=== PATIENT | male | born 1960 | race Caucasian/White ===

== ENCOUNTER 2024-03-21 08:26 | Outpatient (CLI) | payer BC, SELFPAY ==
[2024-03-21 13:10] LABS: Triglycerides 187 mg/dL (<150)
[2024-03-21 14:56] LABS: Hemoglobin A1C 6.9 % (<5.7)
== END 2024-03-21 08:27 | disposition home or self-care (01) ==
LOC: ANHGOSHLAB 08:28
PROVIDERS: PCP Family Medicine; Visit Provider Nurse Practitioner Family
DX: E11.40 Type 2 diabetes mellitus with diabetic neuropathy, unspecified (principal); E78.2 Mixed hyperlipidemia
CPT/HCPCS: 36415; 83036; 84478

== ENCOUNTER 2024-07-24 08:20 | Outpatient (CLI) | payer BC, SELFPAY ==
[2024-07-24 21:28] LABS: Creatinine Urine 48.3 mg/dL
[2024-07-24 21:31] LABS: MALB Creatinine Ratio 18.4 mg/g (0-30); Microalbumin Urine Random 8.9 mg/L (0-16.7)
[2024-07-24 22:28] LABS: Alanine Aminotransferase 33 U/L (6-50); Albumin Level 4.2 g/dL (3.5-5.1); Alkaline Phosphatase 68 U/L (38-126); Anion Gap 9 mmol/L (4-12); Aspartate Amino Transferase 47 U/L (17-59); Bilirubin,Total 0.4 mg/dL (0.2-1.3); Blood Urea Nitrogen 13 mg/dL (9-20); Calcium 9.6 mg/dL (8.4-10.2); Carbon Dioxide 29 mmol/L (22-30); Chloride 100 mmol/L (98-107); Cholesterol 113 mg/dL (0-200); Estimated Glomerular Filt Rate > 60; Glucose 102 mg/dL (65-110); HDL Direct 38 mg/dL; Potassium 4.6 mmol/L (3.4-5.0); Sodium 138 mmol/L (137-145); Triglycerides 273 mg/dL (<150)
[2024-07-24 22:39] LABS: LDL Cholesterol Direct 32 mg/dL
[2024-07-24 23:29] LABS: Hemoglobin A1C 6.8 % (<5.7)
== END 2024-07-24 08:21 | disposition home or self-care (01) ==
LOC: ANHGOSHLAB 08:23
PROVIDERS: PCP Family Medicine; Visit Provider Family Medicine
DX: E11.40 Type 2 diabetes mellitus with diabetic neuropathy, unspecified (principal)
CPT/HCPCS: 36415; 80053; 80061; 82043; 82607; 83036

== ENCOUNTER 2024-11-09 00:18 | Day surgery (SDC) | payer BC, SELFPAY ==
[2024-10-30 12:21] VITALS: BMI 27.3
--- OUTSIDE RECORDS SUMMARY | 2024-11-09 00:21 | XMS_ITS | Patient Health Summary ---
Author Organization [facility] Address [address] [place] [address] Care Team Providers Care Gasoline Engine Inspector Name Role Phone Unavailable Primary Care Provider Unavailabl e Note from [facility],non-owned Affiliates and Associated Physician Practices is amultiple site organization consisting of ambulatory clinics and hospital sitesin [place], [place], [place] and [place]. This disclosure is being madepursuant to the Care Everywhere program and may not contain all information available regarding this patient. Last updated 18.[facility] Allergies * Exenatide(Anaphylaxis) -High Criticality * Penicillins(Rash) -Medium Criticality Immunizations * Covid Pfizer primary monovalent 12+ yr 0.3mL Purple cap(Given 06/25/2021) * INFLUENZA VACCINE, QUADR. (FLUZONE; FLULAVAL; FLUARIX; AFLURIA QUADRIVALENT; 6MO+), 0.5 ML (IIV4)(Given 06/03/2021) Social History Tobacco Use Types Packs/Day Years Used Date Smoking Tobacco: Never Assessed Sex and Gender Information Value Date Recorded Sex Assigned at Not on file Gender Identity Not on file Sexual Orientation Not on file Procedures * SKIN TEST PPD - POINT OF CARE(Performed 06/05/2021) Performed for PPD screening test * SKIN TEST PPD - POINT OF CARE(Performed 12/26/2020) Performed for PPD screening test * SKIN TEST PPD - POINT OF CARE(Performed 12/27/2019) Performed for Screening for tuberculosis * SKIN TEST PPD - POINT OF CARE(Performed 09/07/2018) Performed for PPD screening test Results * SKIN TEST PPD - POINT OF CARE (06/05/2021 10:09 AM CDT) Only the most recent of4 resultswithin the time period is included. PPD 0mm [facility] [place] Other MISCELLANEOUS SAMPLE S / Unknown 06/05/2021 10:09 AM CDT Marcos Garcia [facility] - POINT OF CARE ORDERABLES [facility] [place] [address] [phone]
--- OUTSIDE RECORDS SUMMARY | 2024-11-09 00:21 | XMS_ITS | Clinical Summary ---
Author Organization [facility] Address [address] [place]: Epic Prelude ADT RADHA HUYNH [address] Care Team Providers Care Stained Glass Artist Name Role Phone Unavailable Primary Care Provider Unavailabl e Social History Tobacco Use Types Packs/Day Years Used Date Smoking Tobacco: Never Assessed Sex and Gender Information Value Date Recorded Sex Assigned at Not on file Legal Sex Male 3:48 PM CLAIMS SPECIALIST Gender Identity Not on file Sexual Orientation Not on file Plan of Treatment Health Maintenance Due Date Last Done Comments DTAP/TDAP/TD VACCINES (1 - Tdap) 1980 COLORECTAL SCREENING 2006 Colorectal Cancer Screening 2006 FIT-DNA Q 3 years 2006 FIT/FOBT Q 1 year 2006 Flex Sig/CT Colonography Q 5 years 2006 ZOSTER VACCINE (1 of 2) 2011 INFLUENZA VACCINE (#1) 2024 RSV VACCINE (60+ or ) (1 - 1-dose 75+ series) 2036 PNEUMOCOCCAL VACCINE 0-49 YEARS Aged Out No longer eligible based on patient's age to complete this topic
--- OUTSIDE RECORDS SUMMARY | 2024-11-09 00:21 | XMS_ITS | Referral Summary ---
Author Organization [facility] Address [address] [place] [address] Care Team Providers Care Hospitality Job Titles Name Role Phone Unavailable Primary Care Provider Unavailabl e Source Comments [facility],non-owned Affiliates and Associated Physician Practices is amultiple site organization consisting of ambulatory clinics and hospital sitesin [place], [place], [place] and [place]. This disclosure is being madepursuant to the Care Everywhere program and may not contain all information available regarding this patient. Last updated 18.[facility] [employer] Allergies Active Allergy Reactions Criticality Noted Date Comments Exenatide Anaphylaxis High 12/26/2020 Penicillins Rash Medium 09/07/2018 Immunizations Name Administration Dates Next Due Covid Pfizer primary monovalent 12+ yr 0.3mL Pur ple cap 06/25/2021 INFLUENZA VACCINE, QUADR. (F LUZONE; FLULAVAL; FLUARIX; AFLURIA QUADRIVALENT; 6MO+), 0.5 ML (IIV4) 06/03/2021 Social History Tobacco Use Types Packs/Day Years Used Date Smoking Tobacco: Never Assessed Sex and Gender Information Value Date Recorded Sex Assigned at Not on file Gender Identity Not on file Sexual Orientation Not on file Plan of Treatment Not on file Administered Medications
--- OUTSIDE RECORDS SUMMARY | 2024-11-09 00:21 | XMS_ITS | Clinical Summary ---
Author Organization [facility] Address [address] [place] [address] Care Team Providers Care Repair Specialist Name Role Phone Unavailable Primary Care Provider Unavailabl e Source Comments [facility],non-owned Affiliates and Associated Physician Practices is amultiple site organization consisting of ambulatory clinics and hospital sitesin [place], [place], [place] and [place]. This disclosure is being madepursuant to the Care Everywhere program and may not contain all information available regarding this patient. Last updated 18.[facility] [employer] Document Management software Allergies Active Allergy Reactions Criticality Noted Date [...] Health Maintenance Due Date Last Done Comments COLOGUARD (AGES 45-75) - COLON CA SCREENING 1961 COLON MONITORING 1961 COLONOSCOPY - COLON CA SCREENING 1961 CT COLONOGRAPHY - COLON CA SCREENING 1961 Colorectal Cancer Screening 1961 FIT - COLON CA SCREENING 1961 FLEX SIG - COLON CA SCREENING 1961 LIPID TESTING 1961 HIV SCREENING 1976 HEPATITIS C SCREENING 03/06/1979 DTAP/TDAP/TD VACCINES (1 - Tdap) 1980 PNEUMOCOCCAL VACCINE 50+ (1 of 1 - PCV) 2011 ZOSTER VACCINE (1 of 2) 2011 COVID-19 VACCINE (4 - season) 2024 06/25/2021, 09/10/2020, 08/23/2020 INFLUENZA VACCINE (#1) 2024 , 05/11/2020, 05/11/2019, Additional history exists DEPRESSION SCREENING 09/06/2024 Respiratory Syncytial Virus (RSV) Vaccine Pt: or over 60 yrs (1 - 1-dose 75+ series) 2036 HEPATITIS B VACCINE Aged Out No longe r eligible based on patient's age to complete this topic HIB VACCINE Aged Out No longer eligi ble based on patient's age to complete this topic HPV VACCINE Aged Out No longer eligi ble based on patient's age to complete this topic MENINGOCOCCAL (Group B) VACCINE Aged Out No longer eligible based on patient's age to complete this topic MENINGOCOCCAL VACCINE Aged Out No raj omar eligible based on patient's age to complete this topic PNEUMOCOCCAL VACCINE Aged Out No long er eligible based on patient's age to complete this topic
--- OUTSIDE RECORDS SUMMARY | 2024-11-09 00:21 | XMS_ITS | Referral Summary ---
Author Organization [facility] Address [address] [place] [address] Care Team Providers Care Pipe Crew Foreman Name Role Phone Shanon Marcial MD Primary Care Provider + Travis Jacobsen MD Unavailable Francesca Gil MD Unavailable Meli Martinez NP Unavailable [phone] Allergies Active Allergy Reactions Criticality Noted Date Comments Exenatide Microspheres Anaphylaxis High 09/21/2022 Exenatide Swelling,Anaphylaxis High 08/04/2019 Penicillins Itching,Rash Medium 09/07/2018 Medications rosuvastatin (CRESTOR) 10 mg tablet Take 1 tablet (10 mg total) by mouth daily Active trandolapril (MAVIK) 2 mg tablet Take 1 tablet (2 mg total) by mouth daily Active aspirin 81 mg enteric coated tablet Take 1 tablet (81 mg total) by mouth daily Active ezetimibe (ZETIA) 10 mg tablet Take 1 tablet (10 mg total) by mouth daily 2 Active Ozempic 0.25 mg or 0.5 mg(2 mg/1.5 mL) pen injector injection INJECT 0.25MG UNDER THE SKIN WEEKLY 2 Active Synjardy XR 12.5-1,000 mg tablet, IR & ER, biphasic 24hr Take 2 tablets by mouth every morning 2 Active FreeStyle Baldomero 2 Sensor kit CHANGE SENSOR EVERY 14 DAYS 4 Active Ozempic 1 mg/dose (4 mg/3 mL) pen injector injection ADMINISTER 1 MG UNDER THE SKIN WEEKLY 4 Active Active Problems Problem Noted Date Diagnosed Date Radiotherapy follow-up examination 04/14/2023 Tinnitus 10/07/2022 Sensorineural hearing loss, asymmetrical 023 Bilateral impacted cerumen 10/07/2022 Meningioma 09/12/2019 Resolved Problems Problem Noted Date Diagnosed Date Resolved Date Brain lesion 08/11/2019 05/04/2023 Overview (08/11/2019): Added automatically from request for surgery [id number] Immunizations Immunization Administration Dates Next Due Influenza, Quadrivalent, Iliana l Culture-based MDCK, Preservative Free, Antibiotic Free, Intramuscular 05/11/2020 Influenza, Quadrivalent, Rec ombinant, Egg Free, Preservative Free, Intramuscular 05/11/2019 Influenza, Quadrivalent, Spl it, Preservative Free, Intramuscular 06/03/2021,05/23/2018 Social History Tobacco Use Types Packs/Day Years Used Date Smoking Tobacco: Never Smokeless Tobacco: Never Tobacco Cessation:Counseling Given: Not Answered Alcohol Use Standard Drinks/Week Comments Yes 2 (1 standard drink = 0.6 oz pur e alcohol) AUDIT-C Answer Date Recorded Frequency of Alcohol Consumption 2-3 times a wee k 08/04/2019 Average Number of Drinks 1 or 2 019 Frequency of Binge Drinking Never 07/08 PHQ-2 Answer Date Recorded PHQ-2 Score 0 08/04/2019 Sex and Gender Information Value Date Recorded Sex Assigned at Not on file Legal Sex Male 3:43 PM COMPRESSION MOLDING MACHINE SETTER Gender Identity Male 07/23/2020 9:01 AM COMPRESSION MOLDING MACHINE SETTER Sexual Orientation Straight 07/23/2020 9: 01 AM COMPRESSION MOLDING MACHINE SETTER Last Filed Vital Signs Vital Sign Reading Time Taken Comments Blood Pressure 115/69 04/24/2024 2:28 PM CDT Pulse 76 04/24/2024 2:28 PM CDT Temperature 36.9 C (98.5 F) 09/21/2022 9:27 AM COMPRESSION MOLDING MACHINE SETTER Respiratory Rate 11 11/03/2022 8:55 AM COMPRESSION MOLDING MACHINE SETTER Oxygen Saturation 96% 11/03/2022 1:20 PM COMPRESSION MOLDING MACHINE SETTER Inhaled Oxygen Concentration - - Weight 109.3 kg (241 lb) 04/24/2024 2:28 PM CDT Height 195.6 cm (6' 5 ) 04/24/2024 2:28 PM CDT Body Mass Index 28.58 04/24/2024 2:28 PM CDT Plan of Treatment Not on file Medical Devices Implanted Type Area Editor House Organ Device Identifier Shelf Expiration Date Model / Serial / Lot Integra Lifesciences Godfrey [id number] Integra Resorbable Dural Graft Soft Tissue Bovine Pericardium - S. - [id number] Implanted:Qty: 1 on 08/15/2019 by Abhay Cueva MD at [facility] Left: Brain Integra Lifesciences Godfrey 11/03/2021 [id number] / . / Synthes 421.528 24mm .5mm 6 Hole Low Profile Craniofacial Cover D Hanis Hole - [id number] Implanted:Qty: 2 on 08/15/2019 by Abhay Cueva MD at [facility] Left: Brain Synthes I 421.528 / / Synthes 421.527 17mm .5mm Low Profile Craniomaxillofacial Cover Julianna Hole - [id number] Implanted:Qty: 2 on 08/15/2019 by Abhay Cueva MD at [facility] Left: Brain Synthes I 421.527 / / Synthes 400.834 1.6mm 2.9mm 4mm Self Drill Self Retain Low Profile Cruciform - [id number] Implanted:Qty: 16 on 08/15/2019 by Abhay Cueva MD at [facility] Left: Brain Synthes I 400.834 / / Insurance [facility] CHOICE PLUS ANTHEM ACCESS BLUE ACCESS OOS ANTHEM ACCESS ANTHEM ACCESS Advance Directives For more information, please contact: [phone] * Full Code (Latest Code Status on File) Date Activated Date Inactivated Comments 08/15/2019 1:15 PM 08/17/2019 2:54 PM * Full Code Date Activated Date Inactivated Comments 08/14/2019 11:47 AM 08/15/2019 1:15 PM * Full Code Date Activated Date Inactivated Comments 08/04/2019 10:56 AM 08/06/2019 8:42 PM Care Teams Pipe Crew Foreman Relationship Specialty Start Date End Date Shanon Marcial MD PCP - General Family Medicine 08/14/19 Travis Jacobsen MD Surgeon Neurosurgery 11/03/22 Francesca Gil MD Radiation Oncologist Radiation Oncology 04/14/23 Meli Martinez NP Nurse Practitioner Radiation Oncology 10/18/23
--- OUTSIDE RECORDS SUMMARY | 2024-11-09 00:21 | XMS_ITS | Clinical Summary ---
Author Organization [facility] Address [address] [place] [address] Care Team Providers Care Curb Setter Name Role Phone Shanon Marcial MD Primary Care Provider + Travis Jacobsen MD Unavailable Francesca Gil MD Unavailable Meli Martinez NP Unavailable [phone] Allergies Active Allergy Reactions Criticality Noted [...] (08/11/2019): Added automatically from request for surgery [id number] Immunizations Immunization Administration Dates Next Due Influenza, Quadrivalent, Iliana l Culture-based MDCK, Preservative Free, Antibiotic Free, Intramuscular 05/11/2020 Influenza, Quadrivalent, Rec ombinant, Egg Free, Preservative Free, Intramuscular 05/11/2019 Influenza, Quadrivalent, Spl it, Preservative Free, Intramuscular 06/03/2021,05/23/2018 Surgical History Surgery Date Site/Laterality Comments LIVER BIOPSY PROSTATE BIOPSY Medical History Medical History Date Comments Sleep apnea DM2 (diabetes mellitus, type 2) (HCC) HTN (hypertension) HLD (hyperlipidemia) Brain lesion Family History Medical History Relation Name Comments Aneurysm Father Blood Clot Mother Relation Name Status Comments Father Mother Social History Tobacco Use Types Packs/Day Years [...] on file Legal Sex Male 3:43 PM BONE GRINDER Gender Identity Male 07/23/2020 9:01 AM BONE GRINDER Sexual Orientation Straight 07/23/2020 9: 01 AM BONE GRINDER Obstetrics History Last Filed Vital Signs Vital Sign Reading Time Taken Comments Blood Pressure 115/69 04/24/2024 2:28 PM CDT Pulse 76 04/24/2024 2:28 PM CDT Temperature 36.9 C (98.5 F) 09/21/2022 9:27 AM BONE GRINDER Respiratory Rate 11 11/03/2022 8:55 AM BONE GRINDER Oxygen Saturation 96% 11/03/2022 1:20 PM BONE GRINDER Inhaled Oxygen Concentration - - Weight 109.3 kg (241 lb) 04/24/2024 2:28 PM CDT Height 195.6 cm (6' 5 ) 04/24/2024 2:28 PM CDT Body Mass Index 28.58 04/24/2024 2:28 PM CDT Plan of Treatment Health Maintenance Due Date Last Done Comments Colon Cancer Screening-Colonoscopy 1961 Hepatitis C Screening 1961 Prostate Cancer Screening-PSA 1961 DTaP/Tdap/Td Vaccine (1 - Tdap) 1972 Hepatitis B Screening 1979 Regular Well Visit/Exam 18-64 1979 Zoster Vaccine (1 of 2) 2011 Depression Screening 08/04/2020 08/04/2019 Covid-19 Vaccine ( season) 2024 06/25/2021, 09/10/2020, 08/23/2020 Influenza Vaccine (#1) 2024 , 05/11/2020, 05/11/2019, Additional history exists Pneumococcal vaccine <65 Aged Out No longer eligible based on patient's age to complete this topic Medical Devices Implanted Type Area Patternmaker Sample Device Identifier Shelf Expiration Date Model / Serial / Lot Integra Lifesciences Godfrey [id number] Integra Resorbable Dural Graft Soft Tissue Bovine Pericardium - S. - [id number] Implanted:Qty: 1 on 08/15/2019 by Abhay Cueva MD at [facility] Left: Brain Integra Lifesciences Godfrey 11/03/2021 [id number] / . / Synthes 421.528 24mm .5mm 6 Hole Low Profile Craniofacial Cover Julianna Hole - [id number] Implanted:Qty: 2 on 08/15/2019 by Abhay Cueva MD at [facility] Left: Brain Synthes I 421.528 / / Synthes 421.527 17mm .5mm Low Profile Craniomaxillofacial Cover Julianna Hole - [id number] Implanted:Qty: 2 on 08/15/2019 by Abhay Cueva MD at [facility] Left: Brain Synthes I 421.527 / / Synthes 400.834 1.6mm 2.9mm 4mm Self Drill Self Retain Low Profile Cruciform - [id number] Implanted:Qty: 16 on 08/15/2019 by Abhay Cueva MD at [facility] Left: Brain Synthes I 400.834 / / Insurance [facility] CHOICE PLUS [employer] OOS ANTHEM ACCESS ANTHEM ACCESS Advance Directives For more information, please contact: [phone] * Full Code (Latest Code Status on File) Date Activated Date Inactivated Comments 08/15/2019 1:15 PM 08/17/2019 2:54 PM * Full Code Date Activated Date Inactivated Comments 08/14/2019 11:47 AM 08/15/2019 1:15 PM * Full Code Date Activated Date Inactivated Comments 08/04/2019 10:56 AM 08/06/2019 8:42 PM Care Teams Curb Setter Relationship Specialty Start Date End Date Shanon Marcial MD PCP - General Family Medicine 08/14/19 Travis Jacobsen MD Surgeon Neurosurgery 11/03/22 Francesca Gil MD Radiation Oncologist Radiation Oncology 04/14/23 Meli Martinez NP Nurse Practitioner Radiation Oncology 10/18/23
--- NOTE | 2024-11-09 11:50 | SUR.PREOP ---
blood glucose per dexcom 140
[2024-11-09 11:51] VITALS: BP 115/79; PULSE 64; RESP 16; TEMP 35.9; O2SAT 98; BMI 28.0
[2024-11-09] MEDS: LACTATED RINGERS 1,000 ML 150 ML IV CONT (12:00)
--- NOTE | 2024-11-09 12:10 | WPDANESEPPF ---
Anes - Initial Pre Proc Eval Procedure: Operation Date: 11/09/24 13:00 Proposed Procedures p Screening Colonoscopy - Marcelo Mas MD Date/Time: 11/09/24 12:10 Surgeon: Marcelo Mas MD Pre Op Diagnosis: Screening for malignant neoplasm of colon Patient Data Age: 64 Gender: M Height: 1.96 m Weight: 107.3 kg Last Vital Signs Temp 35.9 C L 11/09/24 11:51 Pulse 64 11/09/24 11:51 Resp 16 11/09/24 11:51 BP 115/79 11/09/24 11:51 Pulse Ox 98 11/09/24 11:51 O2 Del Method Room Air 11/09/24 11:51 Allergies Allergy/AdvReac Type Severity Reaction Status Date / Time exenatide Allergy Unknown Tongue Verified 11/09/24 11:48 swelling Penicillins Allergy Unknown Skin Verified 11/09/24 11:48 Reaction Home Medications ?Medication ?Instructions ?Recorded ?Confirmed ?Type blood sugar diagnostic #10 ea 12/28/19 07/25/24 History lancets (Accu-Chek Softclix #50 ea 12/28/19 07/25/24 History Lancets) flash glucose scanning reader #1 ea 12/26/20 07/25/24 Rx (FreeStyle Baldomero 2 Orondo) aspirin 81 mg tablet,delayed 81 mg PO DAILY 05/01/21 11/09/24 History release (Adult Low Dose Aspirin) mecobalamin (vitamin B12) 1,000 1,000 mcg PO DAILY 11/24/23 11/09/24 History mcg chewable tablet semaglutide 1 mg/dose (4 mg/3 mL) See Rx Instructions .Route 05/24/24 11/09/24 Rx subcutaneous pen injector (Ozempic) .COMPLEX #9 mL flash glucose sensor (FreeStyle #6 ea 05/29/24 07/25/24 Rx Baldomero 2 Sensor kit) rosuvastatin 10 mg tablet See Rx Instructions .Route 06/08/24 11/09/24 Rx .COMPLEX #90 tabs blood-glucose sensor (FreeStyle #6 ea 07/25/24 07/25/24 Rx Baldomero 3 Plus Sensor device) trandolapril 2 mg tablet See Rx Instructions .Route 09/08/24 11/09/24 Rx .COMPLEX #90 tabs ezetimibe 10 mg tablet See Rx Instructions .Route 09/12/24 11/09/24 Rx .COMPLEX #90 tabs empagliflozin 12.5 mg-metformin ER See Rx Instructions .Route 10/02/24 11/09/24 Rx 1,000 mg tablet,extended rel 24 hr .COMPLEX #180 tabs (Synjardy XR) Patient hx anesthesia problems: none Family hx anesthesia problems: none Results Review: All pre-operative results and documents have been reviewed as part of the pre-operative evaluation. [facility] Past Medical History Medical History (Updated 11/09/24 @ 12:11 by Kem Zapien DO) Mixed hyperlipidemia Obstructive sleep apnea on CPAP Type 2 diabetes mellitus with diabetic neuropathy, unspecified Essential hypertension Normal colonoscopy 08.21.13/ repeat in 10 years Meningioma 08-04-19/ cystic meningioma Surgical History Surgical History H/O craniotomy 08/15/19 left frontal craniotomy for cystic meningioma Family History Family History Mother Family history of coronary artery disease Diabetes mellitus Hypertension Family history of rheumatoid arthritis Family history of sleep apnea Father Family history of aortic aneurysm Sibling Cerebral aneurysm Other Cerebral aneurysm Social History Social History Smoking status: Never smoker Alcohol intake: current Drinks per week: 5 Substance use: never Substance use type: does not use Do You Feel Safe in your Home?: Yes Lack of Transportation: No Lack of Food: Never True Current Housing: I Have Housing Concerned About Future Housing: No Difficulty Paying Gas/Electric Bills: No Difficulty Paying for Meds: No Currently Unemployed: No Education: Bachelor's Degree Difficulty w/ Childcare or Family Care: No Living arrangements: with family Spiritual care concerns: No Anes - Eval Final PreProcedure Day of Procedure 11/09/24 12:10 Patient weight: overweight Heart: regular rate and rhythm Lungs: clear to auscultation Airway: Mallampati scale class II Neurological: alert and oriented Last oral intake: >/= 8 hours ASA classification: III Emergent: no Anesthetic plan: proceed Anesthesia type and monitoring: general GIVS and standard monitoring Results Review: All pre-operative results and documents have been reviewed as part of the pre-operative evaluation. Informed Consent: The patient's anesthetic plan and its attendant risks and benefits were discussed with the patient/family/POA. Questions were solicited and answers provided to the satisfaction of the patient/family/POA.
--- NOTE | 2024-11-09 13:24 | P.HP_ITS ---
H&P: HPI History of Present Illness Date/Time: 11/09/24 13:24 Chief Complaint: Screening colonoscopy Narrative: This is the patient's 2nd colonoscopy after 10 years. There are no GI symptoms and there is no family history of colorectal cancer. Review of Systems Review of Systems: All systems reviewed & are unremarkable except as noted in HPI and below PMFSH Past Medical History Medical History (Updated 11/09/24 @ 13:25 by Marcelo Mas MD) Mixed hyperlipidemia Obstructive sleep apnea on CPAP Type 2 diabetes mellitus with diabetic neuropathy, unspecified Essential hypertension Normal colonoscopy 08.21.13/ repeat in 10 years Meningioma 08-04-19/ cystic meningioma Surgical History Surgical History H/O craniotomy 08/15/19 left frontal craniotomy for cystic meningioma Family History Family History Mother Family history of coronary artery disease Diabetes mellitus Hypertension Family history of rheumatoid arthritis Family history of sleep apnea Father Family history of aortic aneurysm Sibling Cerebral aneurysm Other Cerebral aneurysm Social History Social History Smoking status: Never smoker Alcohol intake: current Drinks per week: 5 Substance use: never Substance use type: does not use Do You Feel Safe in your Home?: Yes Lack of Transportation: No Lack of Food: Never True Current Housing: I Have Housing Concerned About Future Housing: No Difficulty Paying Gas/Electric Bills: No Difficulty Paying for Meds: No Currently Unemployed: No Education: Bachelor's Degree Difficulty w/ Childcare or Family Care: No Living arrangements: with family Spiritual care concerns: No Meds Home Medications and Allergies Home Medications ?Medication ?Instructions ?Recorded ?Confirmed ?Type blood sugar diagnostic #10 ea 12/28/19 07/25/24 History lancets (Accu-Chek Softclix #50 ea 12/28/19 07/25/24 History Lancets) flash glucose scanning reader #1 ea 12/26/20 07/25/24 Rx (FreeStyle Baldomero 2 [place]) aspirin 81 mg tablet,delayed 81 mg PO DAILY 05/01/21 11/09/24 History release (Adult Low Dose Aspirin) mecobalamin (vitamin B12) 1,000 1,000 mcg PO DAILY 11/24/23 11/09/24 History mcg chewable tablet semaglutide 1 mg/dose (4 mg/3 mL) See Rx Instructions .Route 05/24/24 11/09/24 Rx subcutaneous pen injector (Ozempic) .COMPLEX #9 mL flash glucose sensor (FreeStyle #6 ea 05/29/24 07/25/24 Rx Baldomero 2 Sensor kit) rosuvastatin 10 mg tablet See Rx Instructions .Route 06/08/24 11/09/24 Rx .COMPLEX #90 tabs blood-glucose sensor (FreeStyle #6 ea 07/25/24 07/25/24 Rx Baldomero 3 Plus Sensor device) trandolapril 2 mg tablet See Rx Instructions .Route 09/08/24 11/09/24 Rx .COMPLEX #90 tabs ezetimibe 10 mg tablet See Rx Instructions .Route 09/12/24 11/09/24 Rx .COMPLEX #90 tabs empagliflozin 12.5 mg-metformin ER See Rx Instructions .Route 10/02/24 11/09/24 Rx 1,000 mg tablet,extended rel 24 hr .COMPLEX #180 tabs (Synjardy XR) Allergies Allergy/AdvReac Type Severity Reaction Status Date / Time exenatide Allergy Unknown Tongue Verified 11/09/24 11:48 swelling Penicillins Allergy Unknown Skin Verified 11/09/24 11:48 Reaction Vital Signs Vital Signs - 24 hr 11/09/24 11:51 Temperature 96.6 F L Pulse Rate 64 Respiratory Rate 16 Blood Pressure 115/79 Pulse Oximetry 98 Oxygen Delivery Room Air Exam Const: General: cooperative and healthy appearing Resp: Effort & Inspection: normal respiratory effort and able to speak in complete sentences Auscultation: clear to auscultation bilaterally Cardio: Rate: regular rate Rhythm: regular rhythm GI: Inspection: normal to inspection GI Palp: No No hepatosplenomegaly present Auscultation: normal bowel sounds Rectal Exam: deferred Skin: General skin exam: normal color Psych: Appearance: grossly normal Mental Status: mental status grossly normal Assessment and Plan Assessment and plan (1) Encounter for screening colonoscopy: Code(s): Z12.11 - Encounter for screening for malignant neoplasm of colon Status: Acute Assessment and Plan: The patient is deemed a good candidate for the procedure. Consent signed. Will proceed.
[2024-11-09 13:57] VITALS: BP 102/68; PULSE 67; RESP 24; O2SAT 98
[2024-11-09 14:07] VITALS: BP 114/78; PULSE 60; RESP 20; O2SAT 100
[2024-11-09 14:17] VITALS: BP 122/86; PULSE 58; RESP 17; O2SAT 100
== END 2024-11-09 14:27 | disposition home or self-care (01) ==
PROVIDERS: PCP Family Medicine; Referring Provider Family Medicine; Visit Provider Internal Medicine Gastroenterology
PROC: 0DJD8ZZ Inspection of Lower Intestinal Tract, Via Natural or Artificial Opening Endoscopic (ICD-10-PCS; CPT 45378; principal; 2024-11-09 13:00)
DX: Z12.11 Encounter for screening for malignant neoplasm of colon (principal)
CPT/HCPCS: 45378; J2003; J2704; J7120

== ENCOUNTER 2024-12-20 16:04 | Emergency (ER) | payer OTHER, BC, SELFPAY ==
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
[2024-12-20 16:36] VITALS: BP 151/84; PULSE 70; RESP 14; TEMP 36.4; O2SAT 98
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
--- OUTSIDE RECORDS SUMMARY | 2024-12-20 16:52 | XMS_ITS | Clinical Summary ---
Author Organization [facility] Address [address] [place] [address] Care Team Providers Care Utility Manager Name Role Phone Shanon Marcial MD Primary Care Provider + Travis Jacobsen MD Unavailable Francesca Gil MD Unavailable Meli Martinez NP Unavailable [phone] Allergies Active Allergy Reactions Criticality Noted [...] (08/11/2019): Added automatically from request for surgery [id number] Immunizations Immunization Administration Dates Next Due Influenza, [...] on file Legal Sex Male 3:43 PM HOSPICE AIDE Gender Identity Male 07/23/2020 9:01 AM HOSPICE AIDE Sexual Orientation Straight 07/23/2020 9: 01 AM HOSPICE AIDE Obstetrics History Last Filed Vital Signs Vital Sign Reading Time Taken Comments Blood Pressure 115/69 04/24/2024 2:28 PM CDT Pulse 76 04/24/2024 2:28 PM CDT Temperature 36.9 C (98.5 F) 09/21/2022 9:27 AM HOSPICE AIDE Respiratory Rate 11 11/03/2022 8:55 AM HOSPICE AIDE Oxygen Saturation 96% 11/03/2022 1:20 PM HOSPICE AIDE Inhaled Oxygen Concentration - - Weight 109.3 [...] season) 2024 06/25/2021, 09/10/2020, 08/23/2020 Influenza Vaccine (Season Ended) 2025 06/03/2021, 05/11/2020, 05/11/2019, Additional history exists Pneumococcal vaccine <65 Aged Out No longer eligible based on patient's age to complete this topic Medical Devices Implanted Type Area Loss Prevention Guard Device Identifier Shelf Expiration Date Model / Serial / Lot Integra [employer] [id number] Integra Resorbable Dural Graft Soft Tissue Bovine Pericardium - S. - [id number] Implanted:Qty: 1 on 08/15/2019 by Abhay Cueva MD at [facility] Left: Brain Integra [employer]frey 11/03/2021 [id number] / . / Synthes 421.528 24mm .5mm 6 Hole Low Profile Craniofacial Cover [place] - [id number] Implanted:Qty: 2 on 08/15/2019 by Abhay Cueva MD at [facility] Left: Brain Synthes I 421.528 / / Synthes 421.527 17mm .5mm Low Profile Craniomaxillofacial Cover Julianna Hole - [id number] Implanted:Qty: 2 on 08/15/2019 by Abhay Cueva MD at [facility] Left: Brain Synthes I 421.527 / / Synthes 400.834 1.6mm 2.9mm 4mm Self Drill Self Retain Low Profile Cruciform - [id number] Implanted:Qty: 16 on 08/15/2019 by Abhay Cueva MD at [facility] Left: Brain Synthes I 400.834 / / Insurance [facility] CHOICE PLUS [id number] Address: [address] [place] [address] [employer] Address: [facility] [address] [place] [address] [employer] Address: [place] [address] [employer] Address: [address] [place] [address] Advance Directives For more information, please contact: [phone] * Full Code (Latest Code Status on File) Date Activated Date Inactivated Comments 08/15/2019 1:15 PM 08/17/2019 2:54 PM * Full Code Date Activated Date Inactivated Comments 08/14/2019 11:47 AM 08/15/2019 1:15 PM * Full Code Date Activated Date Inactivated Comments 08/04/2019 10:56 AM 08/06/2019 8:42 PM Care Teams Utility Manager Relationship Specialty Start Date End Date Shanon Marcial MD PCP - General Family Medicine 08/14/19 Travis Jacobsen MD Surgeon Neurosurgery 11/03/22 Francesca Gil MD Radiation Oncologist Radiation Oncology 04/14/23 Meli Martinez NP Nurse Practitioner Radiation Oncology 10/18/23
--- OUTSIDE RECORDS SUMMARY | 2024-12-20 16:52 | XMS_ITS | Referral Summary ---
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 Gender Identity Male 07/23/2020 9:01 AM MACHINE FITTER Sexual Orientation Straight 07/23/2020 9: 01 AM MACHINE FITTER Last Filed Vital Signs Vital Sign Reading Time Taken Comments Blood Pressure 115/69 04/24/2024 2:28 PM CDT Pulse 76 04/24/2024 2:28 PM CDT Temperature 36.9 C (98.5 F) 09/21/2022 9:27 AM MACHINE FITTER Respiratory Rate 11 11/03/2022 8:55 AM MACHINE FITTER Oxygen Saturation 96% 11/03/2022 1:20 PM MACHINE FITTER Inhaled Oxygen Concentration - - Weight 109.3 kg (241 lb) 04/24/2024 2:28 PM CDT Height 195.6 cm (6' 5 ) 04/24/2024 2:28 PM CDT Body Mass Index 28.58 04/24/2024 2:28 PM CDT Plan of Treatment Not on file Medical Devices Implanted Type Area Scratch Finisher Device Identifier Shelf Expiration Date Model / Serial / Lot Integra Lifesciences Godfrey [id number] Integra Resorbable Dural Graft Soft Tissue Bovine Pericardium - S. - [id number] Implanted:Qty: 1 on 08/15/2019 by Abhay Cueva MD at [facility] Left: Brain Integra Lifesciences Godfrey 11/03/2021 [id number] / . / Synthes 421.528 24mm .5mm 6 Hole Low Profile Craniofacial Cover [place] Hole - [id number] Implanted:Qty: 2 on 08/15/2019 by Abhay Cueva MD at [facility] Left: Brain Synthes I 421.528 / / Synthes 421.527 17mm .5mm Low Profile Craniomaxillofacial Cover [place] Hole - [id number] Implanted:Qty: 2 on 08/15/2019 by Abhay Cueva MD at [facility] Left: Brain Synthes I 421.527 / / Synthes 400.834 1.6mm 2.9mm 4mm Self Drill Self Retain Low Profile Cruciform - [id number] Implanted:Qty: 16 on 08/15/2019 by Abhay Cueva MD at [facility] Left: Brain Synthes I 400.834 / / Insurance [facility] CHOICE PLUS ANTHEM ACCESS BLUE ACCESS OOS ANTHEM ACCESS ANTHEM ACCESS Advance Directives For more information, please contact: [phone] * Full Code (Latest Code Status on File) Date Activated Date Inactivated Comments 08/15/2019 1:15 PM 08/17/2019 2:54 PM * Full Code Date Activated Date Inactivated Comments 08/14/2019 11:47 AM 08/15/2019 1:15 PM * Full Code Date Activated Date Inactivated Comments 08/04/2019 10:56 AM 08/06/2019 8:42 PM Care Teams Marble Setter Relationship Specialty Start Date End Date Shanon Marcial MD PCP - General Family Medicine 08/14/19 Travis Jacobsen MD Surgeon Neurosurgery 11/03/22 Francesca Gil MD Radiation Oncologist Radiation Oncology 04/14/23 Meli Martinez NP Nurse Practitioner Radiation Oncology 10/18/23
--- OUTSIDE RECORDS SUMMARY | 2024-12-20 16:52 | XMS_ITS | Clinical Summary ---
Author Organization [facility] Address [address] Reichn: Epic Prelude ADT RADHA HUYNH [address] Care Team Providers Care Key Account Coordinator Name Role Phone Unavailable Primary Care Provider Unavailabl e Social History Tobacco Use Types Packs/Day Years Used Date Smoking Tobacco: Never Assessed Sex and Gender Information Value Date Recorded Sex Assigned at Not on file Legal Sex Male 3:48 PM SEARCH OPTIMIZATION ANALYST Gender Identity Not on file Sexual Orientation [...]
--- OUTSIDE RECORDS SUMMARY | 2024-12-20 16:52 | XMS_ITS | Clinical Summary ---
Author Organization [facility] Address [address] [place] [address] Care Team Providers Care Waterproofer Name Role Phone Unavailable Primary Care Provider Unavailabl e Source Comments [facility],non-owned Affiliates and Associated Physician Practices is amultiple site organization consisting of ambulatory clinics and hospital sitesin [place], [place], [place] and [place]. This disclosure is being madepursuant to the Care Everywhere program and may not contain all information available regarding this patient. Last updated 18.[facility] Allergies Active Allergy Reactions Criticality Noted Date Comments Exenatide Anaphylaxis High 12/26/2020 Penicillins Rash Medium 09/07/2018 Immunizations Immunization Administration Dates Next Due Covid Pfizer primary monovalent 12+ yr 0.3mL Pur ple cap 06/25/2021 INFLUENZA VACCINE, QUADR. (F LUZONE; FLULAVAL; FLUARIX; AFLURIA QUADRIVALENT; 6MO+), 0.5 ML (IIV4) 06/03/2021 Social History Tobacco Use Types Packs/Day Years Used Date Smoking Tobacco: Never Assessed Sex and Gender Information Value Date Recorded Sex Assigned at Not on file Legal Sex Male 5:22 AM COTTON CLASSER AIDE Gender Identity Not on file Sexual Orientation [...] (4 - season) 2024 06/25/2021, 09/10/2020, 08/23/2020 DEPRESSION SCREENING 09/06/2024 INFLUENZA VACCINE (Season Ended) 2025 06/03/2021, 05/11/2020, 05/11/2019, Additional history exists Respiratory Syncytial Virus (RSV) Vaccine Pt: or [...] complete this topic MENINGOCOCCAL (Group B) VACCINE SHARED DECISION-MAKING Aged Out No longer eligible based on patient's age to complete this topic MENINGOCOCCAL GROUPS A/C/Y/W VACCINE Aged Out No longer eligible based on patient's age to complete this topic Insurance [facility]
[2024-12-20] MEDS: ACETAMINOPHEN 500 MG TABLET 1000 MG PO (17:14)
--- OUTSIDE RECORDS SUMMARY | 2024-12-20 17:39 | XMS_ITS | Referral Summary ---
Author Organization 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 Gender Identity Male 07/23/2020 9:01 AM MELTER SUPERVISOR ELECTRIC ARC FURNACE Sexual Orientation Straight 07/23/2020 9: 01 AM MELTER SUPERVISOR ELECTRIC ARC FURNACE Last Filed Vital Signs Vital Sign Reading Time Taken Comments Blood Pressure 115/69 04/24/2024 2:28 PM CDT Pulse 76 04/24/2024 2:28 PM CDT Temperature 36.9 C (98.5 F) 09/21/2022 9:27 AM MELTER SUPERVISOR ELECTRIC ARC FURNACE Respiratory Rate 11 11/03/2022 8:55 AM MELTER SUPERVISOR ELECTRIC ARC FURNACE Oxygen Saturation 96% 11/03/2022 1:20 PM MELTER SUPERVISOR ELECTRIC ARC FURNACE Inhaled Oxygen Concentration - - Weight 109.3 kg (241 lb) 04/24/2024 2:28 PM CDT Height 195.6 cm (6' 5 ) 04/24/2024 2:28 PM CDT Body Mass Index 28.58 04/24/2024 2:28 PM CDT Plan of Treatment Not on file Medical Devices Implanted Type Area Svp Digital Sales Device Identifier Shelf Expiration Date Model / Serial / Lot Integra Lifesciences Godfrey [id number] Integra Resorbable Dural Graft Soft Tissue Bovine Pericardium - S. - [id number] Implanted:Qty: 1 on 08/15/2019 by Abhay Cueva MD at [facility] Left: Brain Integra Lifesciences Godfrey 11/03/2021 [id number] / . / Synthes 421.528 24mm .5mm 6 Hole Low Profile Craniofacial Cover [place] Hole - [id number] Implanted:Qty: 2 on 08/15/2019 by Abhay Cueva MD at [facility] Left: Brain Synthes I 421.528 / / Synthes 421.527 17mm .5mm Low Profile Craniomaxillofacial Cover [place] Hole - [id number] Implanted:Qty: 2 on 08/15/2019 by Abhay Cueva MD at [facility] Left: Brain Synthes I 421.527 / / Synthes 400.834 1.6mm 2.9mm 4mm Self Drill Self Retain Low Profile Cruciform - [id number] Implanted:Qty: 16 on 08/15/2019 by Abhay Cueva MD at [facility] Left: Brain Synthes I 400.834 / / Insurance [facility] CHOICE PLUS ANTHEM ACCESS BLUE ACCESS OOS ANTHEM ACCESS ANTHEM ACCESS Advance Directives For more information, please contact: [phone] * Full Code (Latest Code Status on File) Date Activated Date Inactivated Comments 08/15/2019 1:15 PM 08/17/2019 2:54 PM * Full Code Date Activated Date Inactivated Comments 08/14/2019 11:47 AM 08/15/2019 1:15 PM * Full Code Date Activated Date Inactivated Comments 08/04/2019 10:56 AM 08/06/2019 8:42 PM Care Teams Screen Printing Paster Relationship Specialty Start Date End Date Shanon Marcial MD PCP - General Family Medicine 08/14/19 Travis Jacobsen MD Surgeon Neurosurgery 11/03/22 Francesca Gil MD Radiation Oncologist Radiation Oncology 04/14/23 Meli Martinez NP Nurse Practitioner Radiation Oncology 10/18/23
--- OUTSIDE RECORDS SUMMARY | 2024-12-20 17:39 | XMS_ITS | Clinical Summary ---
Author Organization [facility] Address [address] 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
--- OUTSIDE RECORDS SUMMARY | 2024-12-20 17:39 | XMS_ITS | Clinical Summary ---
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 Gender Identity Male 07/23/2020 9:01 AM WELT SLASHER Sexual Orientation Straight 07/23/2020 9: 01 AM WELT SLASHER Obstetrics History Last Filed Vital Signs Vital Sign Reading Time Taken Comments Blood Pressure 115/69 04/24/2024 2:28 PM CDT Pulse 76 04/24/2024 2:28 PM CDT Temperature 36.9 C (98.5 F) 09/21/2022 9:27 AM WELT SLASHER Respiratory Rate 11 11/03/2022 8:55 AM WELT SLASHER Oxygen Saturation 96% 11/03/2022 1:20 PM WELT SLASHER Inhaled Oxygen Concentration - - Weight 109.3 [...] this topic Medical Devices Implanted Type Area Manager Transmission Device Identifier Shelf Expiration Date Model / Serial / Lot Integra Lifesciences Godfrey [id number] Integra Resorbable Dural Graft Soft Tissue Bovine Pericardium - S. - [id number] Implanted:Qty: 1 on 08/15/2019 by Abhay Cueva MD at [facility] Left: Brain Integra Lifesciences Godfrey 11/03/2021 [id number] / . / Synthes 421.528 24mm .5mm 6 Hole Low Profile Craniofacial Cover [place] Hole - [id number] Implanted:Qty: 2 on 08/15/2019 by Abhay Cueva MD at [facility] Left: Brain Synthes I 421.528 / / Synthes 421.527 17mm .5mm Low Profile Craniomaxillofacial Cover [place] Hole - [id number] Implanted:Qty: 2 on 08/15/2019 by Abhay Cueva MD at [facility] Left: Brain Synthes I 421.527 / / Synthes 400.834 1.6mm 2.9mm 4mm Self Drill Self Retain Low Profile Cruciform - [id number] Implanted:Qty: 16 on 08/15/2019 by Abhay Cueva MD at [facility] Left: Brain Synthes I 400.834 / / Insurance [facility] CHOICE PLUS [facility] HMO/PPO Address: [facility] [address] [place] [address] [employer] OOS ANTHEM ACCESS ANTHEM ACCESS Advance Directives For more information, please contact: [phone] * Full Code (Latest Code Status on File) Date Activated Date Inactivated Comments 08/15/2019 1:15 PM 08/17/2019 2:54 PM * Full Code Date Activated Date Inactivated Comments 08/14/2019 11:47 AM 08/15/2019 1:15 PM * Full Code Date Activated Date Inactivated Comments 08/04/2019 10:56 AM 08/06/2019 8:42 PM Care Teams Regrinder Operator Relationship Specialty Start Date End Date Shanon Marcial MD PCP - General Family Medicine 08/14/19 Travis Jacobsen MD Surgeon Neurosurgery 11/03/22 Francesca Gil MD Radiation Oncologist Radiation Oncology 04/14/23 Meli Martinez NP Nurse Practitioner Radiation Oncology 10/18/23
--- OUTSIDE RECORDS SUMMARY | 2024-12-20 17:39 | XMS_ITS | Clinical Summary ---
Author Organization [facility] Address [address] [place] [address] Care Team Providers Care Tile Sprayer Name Role Phone Unavailable Primary Care Provider Unavailabl e Source Comments [facility],non-owned Affiliates and Associated Physician Practices is amultiple site organization consisting of ambulatory clinics and hospital sitesin [place], [place], [place] and [place]. This disclosure is being madepursuant to the Care Everywhere program and may not contain all information available regarding this patient. 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
== END 2024-12-20 18:17 | disposition home or self-care (01) ==
PROVIDERS: Emergency Provider Physician Assistant; PCP Family Medicine
DX: S39.012A Strain of muscle, fascia and tendon of lower back, initial encounter (principal); S63.90XA Sprain of unspecified part of unspecified wrist and hand, initial encounter; S83.91XA Sprain of unspecified site of right knee, initial encounter; M47.816 Spondylosis without myelopathy or radiculopathy, lumbar region; E78.5 Hyperlipidemia, unspecified; G47.30 Sleep apnea, unspecified; E11.40 Type 2 diabetes mellitus with diabetic neuropathy, unspecified; I10 Essential (primary) hypertension; V43.52XA Car driver injured in collision with other type car in traffic accident, initial encounter
CPT/HCPCS: 70450; 72125; 72131; 73030; 73080; 73130; 73564; 99284; A9270

== ENCOUNTER 2025-01-22 07:54 | Outpatient (CLI) | payer OTHER, BC, SELFPAY ==
--- OUTSIDE RECORDS SUMMARY | 2025-01-22 08:01 | XMS_ITS | Clinical Summary ---
Author Organization [facility] Address [address] 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
--- OUTSIDE RECORDS SUMMARY | 2025-01-22 08:01 | XMS_ITS | Clinical Summary ---
Author Organization [facility] Address [address] [place] [address] Care Team Providers Care Lead Burner Name Role Phone Unavailable Primary Care Provider Unavailabl e Source Comments [facility],non-owned Affiliates and Associated Physician Practices is amultiple site organization consisting of ambulatory clinics and hospital sitesin [place], [place], [place] and [place]. This disclosure is being madepursuant to the Care Everywhere program and may not contain all information available regarding this patient. 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
--- OUTSIDE RECORDS SUMMARY | 2025-01-22 08:01 | XMS_ITS | Referral Summary ---
Author Organization [facility] Address [address] [place] [address] Care Team Providers Care Maintenance Shop Clerk Name Role Phone Shanon Marcial MD Primary Care Provider + Travis Jacobsen MD Unavailable Francesca Gil MD Unavailable Meli Martinez NP Unavailable [phone] Allergies Active Allergy Reactions Criticality Noted [...] (08/11/2019): Added automatically from request for surgery [id number] Immunizations Immunization Administration Dates Next Due Influenza, [...] on file Legal Sex Male 3:43 PM GROUP CAPTAIN Gender Identity Male 07/23/2020 9:01 AM GROUP CAPTAIN Sexual Orientation Straight 07/23/2020 9: 01 AM GROUP CAPTAIN Last Filed Vital Signs Vital Sign Reading Time Taken Comments Blood Pressure 115/69 04/24/2024 2:28 PM CDT Pulse 76 04/24/2024 2:28 PM CDT Temperature 36.9 C (98.5 F) 09/21/2022 9:27 AM GROUP CAPTAIN Respiratory Rate 11 11/03/2022 8:55 AM GROUP CAPTAIN Oxygen Saturation 96% 11/03/2022 1:20 PM GROUP CAPTAIN Inhaled Oxygen Concentration - - Weight 109.3 kg (241 lb) 04/24/2024 2:28 PM CDT Height 195.6 cm (6' 5 ) 04/24/2024 2:28 PM CDT Body Mass Index 28.58 04/24/2024 2:28 PM CDT Plan of Treatment Not on file Medical Devices Implanted Type Area [place] Operator Device Identifier Shelf Expiration Date Model / Serial / Lot Integra Lifesciences Godfrey [id number] Integra Resorbable Dural Graft Soft Tissue Bovine Pericardium - S. - [id number] Implanted:Qty: 1 on 08/15/2019 by Abhay Cueva MD at [facility] Left: Brain Integra [employer]esciences Godfrey 11/03/2021 [id number] / . / Synthes 421.528 24mm .5mm 6 Hole Low Profile Craniofacial Cover [place] Hole - [id number] Implanted:Qty: 2 on 08/15/2019 by Abhay Cueva MD at [facility] Left: Brain Synthes I 421.528 / / Synthes 421.527 17mm .5mm Low Profile Craniomaxillofacial Cover [place] Hole - [id number] Implanted:Qty: 2 on 08/15/2019 by Abhay Cueva MD at [facility] Left: Brain Synthes I 421.527 / / Synthes 400.834 1.6mm 2.9mm 4mm Self Drill Self Retain Low Profile Cruciform - [id number] Implanted:Qty: 16 on 08/15/2019 by Abhay Cueva MD at [facility] Left: Brain Synthes I 400.834 / / Insurance [facility] CHOICE PLUS ANTHEM ACCESS BLUE ACCESS OOS ANTHEM ACCESS ANTHEM ACCESS Advance Directives For more information, please contact: [phone] * Full Code (Latest Code Status on File) Date Activated Date Inactivated Comments 08/15/2019 1:15 PM 08/17/2019 2:54 PM * Full Code Date Activated Date Inactivated Comments 08/14/2019 11:47 AM 08/15/2019 1:15 PM * Full Code Date Activated Date Inactivated Comments 08/04/2019 10:56 AM 08/06/2019 8:42 PM Care Teams Maintenance Shop Clerk Relationship Specialty Start Date End Date Shanon Marcial MD PCP - General Family Medicine 08/14/19 Travis Jacobsen MD Surgeon Neurosurgery 11/03/22 Francesca Gil MD Radiation Oncologist Radiation Oncology 04/14/23 Meli Martinez NP Nurse Practitioner Radiation Oncology 10/18/23
--- OUTSIDE RECORDS SUMMARY | 2025-01-22 08:01 | XMS_ITS | Clinical Summary ---
Author Organization 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 RESTAURANT SHIFT SUPERVISOR Gender Identity Male 07/23/2020 9:01 AM RESTAURANT SHIFT SUPERVISOR Sexual Orientation Straight 07/23/2020 9: 01 AM RESTAURANT SHIFT SUPERVISOR Obstetrics History Last Filed Vital Signs Vital Sign Reading Time Taken Comments Blood Pressure 115/69 04/24/2024 2:28 PM CDT Pulse 76 04/24/2024 2:28 PM CDT Temperature 36.9 C (98.5 F) 09/21/2022 9:27 AM RESTAURANT SHIFT SUPERVISOR Respiratory Rate 11 11/03/2022 8:55 AM RESTAURANT SHIFT SUPERVISOR Oxygen Saturation 96% 11/03/2022 1:20 PM RESTAURANT SHIFT SUPERVISOR Inhaled Oxygen Concentration - - Weight 109.3 [...] this topic Medical Devices Implanted Type Area Loom Control Chain Builder Device Identifier Shelf Expiration Date Model / Serial / Lot Integra Lifesciences Godfrey [id number] Integra Resorbable Dural Graft Soft Tissue Bovine Pericardium - S. - [id number] Implanted:Qty: 1 on 08/15/2019 by Abhay Cueva MD at [facility] Left: Brain Integra Lifesciences Godfrey 11/03/2021 [id number] / . / Synthes 421.528 24mm .5mm 6 Hole Low Profile Craniofacial Cover Addison Hole - [id number] Implanted:Qty: 2 on 08/15/2019 by Abhay Cueva MD at [facility] Left: Brain Synthes I 421.528 / / Synthes 421.527 17mm .5mm Low Profile Craniomaxillofacial Cover Addison Hole - [id number] Implanted:Qty: 2 on 08/15/2019 by Abhay Cueva MD at [facility] Left: Brain Synthes I 421.527 / / Synthes 400.834 1.6mm 2.9mm 4mm Self Drill Self Retain Low Profile Cruciform - [id number] Implanted:Qty: 16 on 08/15/2019 by Abhay Cueva MD at [facility] Left: Brain Synthes I 400.834 / / Insurance [facility] CHOICE PLUS [facility] HMO/PPO Address: [facility] [address] [place] [address] [employer] OOS ANTHEM ACCESS ANTHEM ACCESS Advance Directives For more information, please contact: [phone] * Full Code (Latest Code Status on File) Date Activated Date Inactivated Comments 08/15/2019 1:15 PM 08/17/2019 2:54 PM * Full Code Date Activated Date Inactivated Comments 08/14/2019 11:47 AM 08/15/2019 1:15 PM * Full Code Date Activated Date Inactivated Comments 08/04/2019 10:56 AM 08/06/2019 8:42 PM Care Teams Hand Rounder Relationship Specialty Start Date End Date Shanon Marcial MD PCP - General Family Medicine 08/14/19 Travis Jacobsen MD Surgeon Neurosurgery 11/03/22 Francesca Gil MD Radiation Oncologist Radiation Oncology 04/14/23 Meli Martinez NP Nurse Practitioner Radiation Oncology 10/18/23
[2025-01-22 20:38] LABS: Creatinine Urine 78.3 mg/dL
[2025-01-22 20:44] LABS: MALB Creatinine Ratio 19.7 mg/g (0-30); Microalbumin Urine Random 15.4 mg/L (0-16.7)
[2025-01-22 23:06] LABS: Hemoglobin A1C 6.8 % (<5.7)
[2025-01-22 23:17] LABS: Alanine Aminotransferase 32 U/L (6-50); Albumin Level 4.3 g/dL (3.5-5.1); Alkaline Phosphatase 76 U/L (38-126); Anion Gap 8 mmol/L (4-12); Aspartate Amino Transferase 43 U/L (17-59); Bilirubin,Total 0.5 mg/dL (0.2-1.3); Blood Urea Nitrogen 14 mg/dL (9-20); Calcium 9.3 mg/dL (8.4-10.2); Carbon Dioxide 27 mmol/L (22-30); Chloride 103 mmol/L (98-107); Cholesterol 109 mg/dL (0-200); Estimated Glomerular Filt Rate > 60; Glucose 120 mg/dL (65-110); HDL Direct 32 mg/dL; Potassium 4.2 mmol/L (3.4-5.0); Sodium 138 mmol/L (137-145); Triglycerides 275 mg/dL (<150)
[2025-01-22 23:28] LABS: LDL Cholesterol Direct 31 mg/dL
== END 2025-01-22 07:55 | disposition home or self-care (01) ==
LOC: ANHGOSHLAB 07:57
PROVIDERS: PCP Family Medicine; Visit Provider Family Medicine
DX: E11.40 Type 2 diabetes mellitus with diabetic neuropathy, unspecified (principal)
CPT/HCPCS: 36415; 80053; 80061; 82043; 82607; 83036

== ENCOUNTER 2025-02-05 11:05 | Outpatient (RCR) | payer OTHER, BC, SELFPAY ==
--- NOTE | 2025-02-05 11:15 | OPREHPOC ---
Outpatient Therapy Plan of Care This is a Multidisciplinary Plan of Care that may contain components documented by all disciplines (PT, OT, and ST.) PT Problem 1 PT Problem #1 Knowledge Deficit PT Goal 1 Goal / Goal Update 1. Patient will perform independent HEP Target Visit 2 PT Problem 2 PT Problem #2 Pain PT Goal 1 Goal / Goal Update 1. Patient will report no shoulder pain or limitations with daily activities for 2 weeks Target Visit 3 PT Problem 3 PT Problem #3 Impaired Range of Motion PT Goal 1 Goal / Goal Update 1. Patient will demonstrate cervical rotation at least 60 degrees and pain free each direction for driving Target Visit 3
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
--- NOTE | 2025-06-07 10:13 | PTOPDC ---
Assessment and note entered by Daphne Garcia DPT Evaluation Information Assessment Status Discharge - Pt Not Present ICD-10 Condition Codes (PT) Pain in right shoulder M25.511,Pain in left shoulder M25.512 Subjective Information - Assessment PT Clinical Summary Patient's physical therapy case has been discharged. Plan of Care PT Services Indicated No
== END 2025-05-06 23:59 | disposition home or self-care (01) ==
LOC: ANHGOSHPT 11:05
PROVIDERS: PCP Family Medicine; Visit Provider Student in an Organized Health Care Education/Training Program
DX: S69.91XA Unspecified injury of right wrist, hand and finger(s), initial encounter (principal); M25.519 Pain in unspecified shoulder
CPT/HCPCS: 97110; 97161

== ENCOUNTER 2025-03-05 10:30 | Outpatient (RCR) | payer OTHER, BC, SELFPAY ==
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
--- NOTE | 2025-01-22 09:37 | OPREHPOC ---
Outpatient Therapy Plan of Care This is a Multidisciplinary Plan of Care that may contain components documented by all disciplines (PT, OT, and ST.) OT Problem 1 OT Problem #1 Knowledge Deficit OT Goal 1 Goal / Goal Update Patient to be independent with instructed materials. Target Visit 5 OT Problem 2 OT Problem #2 Pain OT Goal 1 Goal / Goal Update Patient to report reduced (R) hand pain to 4/10 or less with ADLs and work. Target Visit 5 OT Problem 3 OT Problem #3 Impaired Range of Motion OT Goal 1 Goal / Goal Update Patient to improve active ROM of the (R) hand to improve flexibility for ADLs and work tasks as measured by improving to < 1 cm gap when attempting to make a hook fist. 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 Target Visit 5
--- NOTE | 2025-03-05 11:16 | OTOPDC ---
Assessment and note entered by Michael Dowd, OTJosué/Tk, CORINNET OT D/C Notification 03/05/25 Assessment Status Discharge Diagnosis S69.91XA Unspecified injury of the right wrist, hand, and finger(s) ICD-10 Condition Codes (OT) Joint stiffness of left hand M25.642,Pain in right hand M79.641 Subjective Information Patient reports progress in the right hand since beginning therapy. He reports he is now able to play golf and hold a steering wheel with the right hand. After golfing he states he iced his hand due to increased swelling after. 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 On a daily basis he experiences 3/10 pain in the right hand. He reports the pain never gets up to 10/10 anymore. Rates at worse 6/10. Reported Pain Level Pain Score 3: Self Report Assessment OT Clinical Summary Patient presents today for OT re-evaluation. He has progressed well with therapy. ROM has returned to functional limits. He is tolerating progressive strengthening of the wrist and hand with low levels of pain. He continues to have flair ups of pain and swelling with use, however he is independent with managing this with rest, ice, and ROM HEP. Overall pain numbers are reducing and he is independent with all materials. D/C OT with HEP. Plan of Care OT Services Indicated No
--- NOTE | 2025-03-05 11:16 | OPREHPOC ---
Outpatient Therapy Plan of Care This is a Multidisciplinary Plan of Care that may contain components documented by all disciplines (PT, OT, and ST.) OT Problem 1 OT Problem #1 Knowledge Deficit OT Goal 1 Goal / Goal Update Patient to be independent with instructed materials. ---OT D/C 03/05/25--- Met Target Visit 5 OT Problem 2 OT Problem #2 Pain OT Goal 1 Goal / Goal Update Patient to report reduced (R) hand pain to 4/10 or less with ADLs and work. ---OT D/C 03/05/25--- Inconsistently met, overall pain numbers are reducing Target Visit 5 OT Problem 3 OT Problem #3 Impaired Range of Motion OT Goal 1 Goal / Goal Update Patient to improve active ROM of the (R) hand to improve flexibility for ADLs and work tasks as measured by improving to < 1 cm gap when attempting to make a hook fist. ---OT D/C 03/05/25-- Met with index. Middle finger progressed to 1 cm gap. 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 ---OT D/C 03/05/25--- Met Target Visit 5
== END 2025-04-11 13:39 | disposition home or self-care (01) ==
LOC: ANHOT 10:30
PROVIDERS: PCP Family Medicine; Visit Provider Student in an Organized Health Care Education/Training Program
DX: S69.91XA Unspecified injury of right wrist, hand and finger(s), initial encounter (principal); M25.542 Pain in joints of left hand; M25.642 Stiffness of left hand, not elsewhere classified; M79.641 Pain in right hand; V89.2XXA Person injured in unspecified motor-vehicle accident, traffic, initial encounter
CPT/HCPCS: 97018; 97110; 97140; 97165

== ENCOUNTER 2025-04-24 08:13 | Outpatient (CLI) | payer BC, SELFPAY ==
--- OUTSIDE RECORDS SUMMARY | 2025-04-24 08:30 | XMS_ITS | Clinical Summary ---
Author Organization [facility] Address [address] 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
--- OUTSIDE RECORDS SUMMARY | 2025-04-24 08:30 | XMS_ITS | Clinical Summary ---
Author Organization [facility] Address [address] [place] [address] Care Team Providers Care Sql Dba Name Role Phone Unavailable Primary Care Provider Unavailabl e Source Comments [facility],non-owned Affiliates and Associated Physician Practices is amultiple site organization consisting of ambulatory clinics and hospital sitesin [place], [place], [place] and [place]. This disclosure is being madepursuant to the Care Everywhere program and may not contain all information available regarding this patient. 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
--- OUTSIDE RECORDS SUMMARY | 2025-04-24 08:30 | XMS_ITS | Clinical Summary ---
Author Organization [facility] Address [address] [place] [address] Care Team Providers Care Facilities Project Manager Name Role Phone Shanon Marcial MD Primary Care Provider + Travis Jacobsen MD Unavailable Francesca Gil MD Unavailable Meli Martinez NP Unavailable [phone] Allergies Active Allergy Reactions Criticality Noted [...] (08/11/2019): Added automatically from request for surgery [id number] Immunizations Immunization Administration Dates Next Due Influenza, [...] on file Legal Sex Male 3:43 PM BUSINESS SYSTEM CONSULTANT Gender Identity Male 07/23/2020 9:01 AM BUSINESS SYSTEM CONSULTANT Sexual Orientation Straight 07/23/2020 9: 01 AM BUSINESS SYSTEM CONSULTANT Obstetrics History Last Filed Vital Signs Vital Sign Reading Time Taken Comments Blood Pressure 115/69 04/24/2024 2:28 PM CDT Pulse 76 04/24/2024 2:28 PM CDT Temperature 36.9 C (98.5 F) 09/21/2022 9:27 AM BUSINESS SYSTEM CONSULTANT Respiratory Rate 11 11/03/2022 8:55 AM BUSINESS SYSTEM CONSULTANT Oxygen Saturation 96% 11/03/2022 1:20 PM BUSINESS SYSTEM CONSULTANT Inhaled Oxygen Concentration - - Weight 109.3 kg (241 lb) 04/24/2024 2:28 PM CDT Height 195.6 cm (6' 5) 04/24/2024 2:28 PM CDT Body Mass Index [...] 2024 06/25/2021, 09/10/2020, 08/23/2020 Influenza Vaccine (#1) 2025 , 05/11/2020, 05/11/2019, Additional history exists Pneumococcal vaccine <65 Aged Out No longer eligible based on patient's age to complete this topic Medical Devices Implanted Type Area Spray Machine Loader Device Identifier Shelf Expiration Date Model / Serial / Lot Integra Lifesciences Godfrey [id number] Integra Resorbable Dural Graft Soft Tissue Bovine Pericardium - S. - [id number] Implanted:Qty: 1 on 08/15/2019 by Abhay Cueva MD at [facility] Left: Brain Integra Lifesciences Godfrey 11/03/2021 [id number] / . / Synthes 421.528 24mm .5mm 6 Hole Low Profile Craniofacial Cover Morton Hole - [id number] Implanted:Qty: 2 on 08/15/2019 by Abhay Cueva MD at [facility] Left: Brain Synthes I 421.528 / / Synthes 421.527 17mm .5mm Low Profile Craniomaxillofacial Cover Julianna Hole - [id number] Implanted:Qty: 2 on 08/15/2019 by Abhay Cueva MD at [facility] Left: Brain Synthes I 421.527 / / Synthes 400.834 1.6mm 2.9mm 4mm Self Drill Self Retain Low Profile Cruciform - [id number] Implanted:Qty: 16 on 08/15/2019 by Abhay Cueva MD at [facility] Left: Brain Synthes I 400.834 / / Insurance [facility] [place] [address] [employer] OOS ANTHEM ACCESS ANTHEM ACCESS Advance Directives For more information, please contact: [phone] * Full Code (Latest Code Status on File) Date Activated Date Inactivated Comments 08/15/2019 1:15 PM 08/17/2019 2:54 PM * Full Code Date Activated Date Inactivated Comments 08/14/2019 11:47 AM 08/15/2019 1:15 PM * Full Code Date Activated Date Inactivated Comments 08/04/2019 10:56 AM 08/06/2019 8:42 PM Care Teams Facilities Project Manager Relationship Specialty Start Date End Date Shanon Marcial MD PCP - General Family Medicine 08/14/19 Travis Jacobsen MD Surgeon Neurosurgery 11/03/22 Francesca Gil MD Radiation Oncologist Radiation Oncology 04/14/23 Meli Martinez NP Nurse Practitioner Radiation Oncology 10/18/23
[2025-04-24 12:55] LABS: Hematocrit 45.2 % (42.0-52.0); Hemoglobin 14.6 g/dL (14.0-18.0); Immature Granulocyte Percent A 0.4 % (0-0.5); Lymphocytes Absolute Auto 1.59 K/mm3 (0.9-3.2); Mean Corpuscular HGB Conc 32.3 g/dl (32-36); Mean Corpuscular Hemoglobin 28.9 pg (26-34); Mean Corpuscular Volume 89.5 fl (80-100); Nucleated Red Blood Cells Absolute Auto 0.000 K/mm3 (0.0-0.012); Nucleated Red Blood Cells Perc 0.0 % (0.0-0.2); Platelet Count Result 205 k/mm3 (150-375); Red Blood Count 5.05 M/mm3 (4.6-6.20); White Blood Count 5.7 K/mm3 (4.5-10.0)
[2025-04-24 14:17] LABS: Hemoglobin A1C 6.6 % (<5.7)
== END 2025-04-24 08:14 | disposition home or self-care (01) ==
LOC: ANHGOSHLAB 08:14
PROVIDERS: PCP Family Medicine; Visit Provider Student in an Organized Health Care Education/Training Program
DX: E11.40 Type 2 diabetes mellitus with diabetic neuropathy, unspecified (principal); I10 Essential (primary) hypertension
CPT/HCPCS: 36415; 83036; 85025